=== PATIENT | male | born 1995 | race American Indian/Alaskan Native ===

== ENCOUNTER 2019-08-10 16:56 | Emergency (ER) | payer SELFPAY ==
--- NOTE | 2019-08-10 17:47 | Emergency Department Report ---
Blank Doc - Documentation Documentation: 23-year-old male that presents with abdominal pain with n/v. This initial assessment/diagnostic orders/clinical plan/treatment(s) is/are subject to change based on patient's health status, clinical progression and re- assessment by fellow clinical providers in the ED. Further treatment and workup at subsequent clinical providers discretion. Patient/guardians urged not to elope from the ED as their condition may be serious if not clinically assessed and managed. Initial orders include: 1- Patient sent to [facility] for further evaluation and treatment 2- labs 3- UA
[2019-08-10 17:54] LABS: Basophils % (Auto) 0.1 % (0.0-1.8); Eosinophils # (Auto) 0.1 K/mm3 (0.0-0.4); Eosinophils % (Auto) 0.5 % (0.0-4.3); Hematocrit 43.9 % (35.5-45.6); Lymphocytes # (Auto) 1.2 K/mm3 (1.2-5.4); Lymphocytes % (Auto) 9.8 % (13.4-35.0); Mean Corpuscular HGB Conc 32 % (32-34); Mean Corpuscular Volume 83 fl (84-94); Monocytes % (Auto) 8.1 % (0.0-7.3); Platelet Count 190 K/mm3 (140-440); Red Blood Count 5.31 M/mm3 (3.65-5.03); Red Cell Distribution Width 14.5 % (13.2-15.2)
[2019-08-10 18:15] LABS: Alanine Aminotransferase 5 units/L (7-56); Albumin 4.8 g/dL (3.9-5); BUN/Creatinine Ratio 9; Blood Urea Nitrogen 9 mg/dL (9-20); Calcium 9.4 mg/dL (8.4-10.2); Hemolysis Index 7
[2019-08-10 18:26] LABS: Bilirubin,Urine NEG (Negative); Blood,Urine NEG (Negative); Color,Urine Yellow (Yellow); Mucus,Urine 2+ /HPF; Protein,Urine <15 mg/dL mg/dL (Negative); Urobilinogen,Urine < 2.0 mg/dL (<2.0); WBC,Urine < 1.0 /HPF (0.0-6.0)
--- NOTE | 2019-08-10 19:48 | Emergency Department Report ---
ED Abdominal Pain HPI - General Chief Complaint: Abdominal Pain Stated Complaint: ABD PAIN Time Seen by Provider: 08/10/19 17:46 Source: patient Mode of arrival: Ambulatory Limitations: No Limitations - History of Present Illness MD Complaint: abdominal pain -: days(s) Radiation: none Migration to: no migration Quality: aching, dull Consistency: constant Improves With: nothing Worsens With: movement Associated Symptoms: denies: vomiting, diarrhea, constipation, dysuria, melena, hematuria, anorexia - Related Data Previous Rx's Medication Instructions Recorded Last Taken Type Hydrocortisone [Anusol-Hc 2.5% TOP 1 gm RC BID #30 cream..g. 08/10/19 Unknown Rx CREAM] Lactulose [Cephulac] 20 gm PO Q6HR PRN #540 ml 08/10/19 Unknown Rx bisacodyL [Dulcolax suppos] 10 mg [place] ONCE #7 supp.rect 08/10/19 Unknown Rx Allergies Allergy/AdvReac Type Severity Reaction Status Date / Time No Known Allergies Allergy Verified 08/10/19 22:08 ED Review of Systems ROS: Stated complaint: ABD PAIN Other details as noted in HPI Comment: All other systems reviewed and negative ED Past Medical Hx - Past Medical History Previous Medical History?: No - Surgical History Past Surgical History?: No - Social History Smoking Status: Never Smoker Substance Use Type: Marijuana - Medications Home Medications: Home Medications Medication Instructions Recorded Confirmed Last Taken Type Hydrocortisone [Anusol-Hc 2.5% TOP 1 gm RC BID #30 cream..g. 08/10/19 Unknown Rx CREAM] Lactulose [Cephulac] 20 gm PO Q6HR PRN #540 ml 08/10/19 Unknown Rx bisacodyL [Dulcolax suppos] 10 mg [place] ONCE #7 supp.rect 08/10/19 Unknown Rx ED Physical Exam - General Limitations: No Limitations General appearance: alert, in no apparent distress - Head Head exam: Present: atraumatic, normocephalic - Eye Eye exam: Present: normal appearance, PERRL, EOMI Pupils: Present: normal accommodation - ENT ENT exam: Present: normal exam, mucous membranes moist - Neck Neck exam: Present: normal inspection - Respiratory Respiratory exam: Present: normal lung sounds bilaterally. Absent: respiratory distress, wheezes, rales, chest wall tenderness, accessory muscle use, decreased breath sounds - Cardiovascular Cardiovascular Exam: Present: regular rate, normal rhythm. Absent: systolic murmur, diastolic murmur, rubs, gallop - GI/Abdominal GI/Abdominal exam: Present: soft, normal bowel sounds - Rectal Rectal exam: Present: deferred, hemorrhoids. Absent: fecal impaction, tende rness - exam: Present: normal inspection - Extremities Exam Extremities exam: Present: normal inspection - Back Exam Back exam: Present: normal inspection, full ROM. Absent: CVA tenderness (R), CVA tenderness (L), muscle spasm - Neurological Exam Neurological exam: Present: alert, oriented X3, CN II-XII intact, normal gait - Psychiatric Psychiatric exam: Present: normal affect, normal mood. Absent: anxious - Skin Skin exam: Present: warm, dry, intact, normal color. Absent: rash ED Course Vital Signs 08/10/19 08/10/19 17:06 23:00 Temperature 97.6 F 98.1 F Pulse Rate 52 L 48 L Respiratory 20 18 Rate Blood Pressure 148/75 Blood Pressure 147/70 [Left] O2 Sat by Pulse 100 99 Oximetry ED Medical Decision Making - Lab Data Result diagrams: 08/10/19 17:21 08/10/19 17:21 - Medical Decision Making This patient presents with abdominal pain of unclear etiology. Their evaluation has not identified a emergent etiology for the abdominal pain. Specifically, given the very benign exam, normal laboratory studies, and lack of significant risk factors, I have a very low suspicion for appendicitis, ischemic bowel, bowel perforation, or any other life threatening disease. I have discussed with the patient the level of uncertainty with undifferentiated abdominal pain and clearly explained the need to follow-up as noted on the discharge instructions, or return to the Emergency Department immediately if the pain worsens, develops fever, persistent and uncontrollable vomiting, or for any new symptoms or concerns. I discussed with the patient that this presentation today for abdominal pain could represent a significant risk for an acute abdominal process. Although the tests in the ED were essentially normal, there is still a possibility of a process such as appendicitis, diverticulitis, cholecystitis, ulcer, early bowel obstruction, mesenteric ischemia, kidney stone, or even kidn ey infection which could subsequently cause disability or . The patient understands that they must return within 24 hours for a recheck or see their physician within 24 hours for re-exam due to the possibility of significant surgical or medical process. Critical care attestation.: If time is entered above; I have spent that time in minutes in the direct care of this critically ill patient, excluding procedure time. ED Disposition Clinical Impression: Constipation, Abdominal pain, Hemorrhoids Disposition: TO HOME OR SELFCARE Is pt being admited?: No Does the pt Need Aspirin: No Condition: Stable Instructions: Constipation (ED), Hemorrhoids (ED), Rectal Bleeding (ED), High Fiber Diet (ED), Acute Abdominal Pain (ED) Prescriptions: Hydrocortisone [Anusol-Hc 2.5% TOP CREAM] 1 gm RC BID #30 cream..g. Lactulose [Cephulac] 20 gm PO Q6HR PRN #540 ml PRN Reason: constipation bisacodyL [Dulcolax suppos] 10 mg MI ONCE #7 supp.rect Referrals: [facility] [Provider Group] - 3-5 Days
--- NOTE | 2019-08-10 20:26 | XRay Report ---
ABDOMEN 3 VIEW(S) INDICATION / CLINICAL INFORMATION: abd pain and constipation. COMPARISON: None available. FINDINGS: TUBES / LINES: None. BOWEL GAS PATTERN: No significant abnormality. FREE AIR / EXTRALUMINAL GAS: None seen. ADDITIONAL FINDINGS: No acute findings on the included chest radiograph. IMPRESSION: 1. No significant abnormality. Signer Name: Cale Harmon MD Signed: 08/10/2019 8:21 PM Workstation Name: [id number]
[2019-08-10] MEDS ORDERED: HYOSCYAMINE SUBL 0.125 MG TAB ONE (22:03)
[2019-08-10] MEDS ORDERED: HYOSCYAMINE SUBL 0.125 MG TAB SL ONE (22:15)
[2019-08-10 23:02] VITALS: BP 147/70
== END 2019-08-10 23:02 | disposition home or self-care (01) ==
LOC: ED 16:56
DX: K59.00 Constipation, unspecified (principal); K64.8 Other hemorrhoids; F12.10 Cannabis abuse, uncomplicated
CPT/HCPCS: 36415; 74022; 80053; 81001; 83690; 85025

== ENCOUNTER 2019-08-11 06:56 | Emergency (ER) | payer SELFPAY ==
[2019-08-11 07:29] VITALS: BP 128/63
[2019-08-11] MEDS ORDERED: LACTATED RINGERS 1,000 ML IV ONE (07:55)
[2019-08-11] MEDS ORDERED: HYOSCYAMINE SUBL 0.125 MG TAB SL ONE (07:55)
[2019-08-11] MEDS ORDERED: ONDANSETRON 4 MG/2 ML INJ IV ONE (07:55)
--- NOTE | 2019-08-11 08:02 | Emergency Department Report ---
ED Abdominal Pain HPI - General Chief Complaint: Nausea/Vomiting/Diarrhea Stated Complaint: ABD PAIN NAUSEA VOMITING DIZZY Time Seen by Provider: 08/11/19 07:54 Source: patient Mode of arrival: Ambulatory Limitations: No Limitations - History of Present Illness Initial Comments: 23-year-old healthy male presenting with abdominal pain. He states it began 2- 1/2 days ago and has gradually worsened. He was seen last night and had labs as well as an x-ray did not reveal any significant findings. He states the pain is worsened. Pain is located primarily in the left lower quadrant but also a bit in the right lower quadrant. MD Complaint: abdominal pain -: Gradual, days(s) (2) Location: LLQ, RLQ Radiation: none Migration to: no migration Severity: moderate Severity scale (0 -10): 5 Quality: cramping Consistency: constant Improves With: nothing Worsens With: nothing Associated Symptoms: nausea, vomiting. denies: diarrhea, fever, chills - Related Data Previous Rx's Medication Instructions Recorded Last Taken Type Hydrocortisone [Anusol-Hc 2.5% TOP 1 gm RC BID #30 cream..g. 08/10/19 Unknown Rx CREAM] Lactulose [Cephulac] 20 gm PO Q6HR PRN #540 ml 08/10/19 Unknown Rx bisacodyL [Dulcolax suppos] 10 mg [place] ONCE #7 supp.rect 08/10/19 Unknown Rx Ciprofloxacin HCl [Ciprofloxacin 500 mg PO Q12HR #20 tab 08/11/19 Unknown Rx TAB] Hyoscyamine Subl [Levsin Sl 0.125 0.125 mg SL Q6HR PRN #12 tab 08/11/19 Unknown Rx TAB] Promethazine [Phenergan] 25 mg PO Q6HR PRN #12 tab 08/11/19 Unknown Rx metroNIDAZOLE [Flagyl] 500 mg PO Q8HR #30 tablet 08/11/19 Unknown Rx Allergies Allergy/AdvReac Type Severity Reaction Status Date / Time No Known Allergies Allergy Verified 08/10/19 22:08 ED Review of Systems ROS: Stated complaint: ABD PAIN NAUSEA VOMITING DIZZY Other details as noted in HPI Comment: All other systems reviewed and negative Gastrointestinal: as per HPI ED Past Medical Hx - Past Medical History Previous Medical History?: No - Surgical History Past Surgical History?: No - Social History Smoking Status: Never Smoker Substance Use Type: None - Medications Home Medications: Home Medications Medication Instructions Recorded Confirmed Last Taken Type Hydrocortisone [Anusol-Hc 2.5% TOP 1 gm RC BID #30 cream..g. 08/10/19 Unknown Rx CREAM] Lactulose [Cephulac] 20 gm PO Q6HR PRN #540 ml 08/10/19 Unknown Rx bisacodyL [Dulcolax suppos] 10 mg [place] ONCE #7 supp.rect 08/10/19 Unknown Rx Ciprofloxacin HCl [Ciprofloxacin 500 mg PO Q12HR #20 tab 08/11/19 Unknown Rx TAB] Hyoscyamine Subl [Levsin Sl 0.125 0.125 mg SL Q6HR PRN #12 tab 08/11/19 Unknown Rx TAB] Promethazine [Phenergan] 25 mg PO Q6HR PRN #12 tab 08/11/19 Unknown Rx metroNIDAZOLE [Flagyl] 500 mg PO Q8HR #30 tablet 08/11/19 Unknown Rx ED Physical Exam - General Limitations: No Limitations General appearance: alert, in no apparent distress - Head Head exam: Present: atraumatic, normocephalic - Eye Eye exam: Present: normal appearance - ENT ENT exam: Present: mucous membranes moist - Neck Neck exam: Present: normal inspection - Respiratory Respiratory exam: Present: normal lung sounds bilaterally. Absent: respiratory distress - Cardiovascular Cardiovascular Exam: Present: regular rate, normal rhythm. Absent: systolic murmur, diastolic murmur, rubs, gallop - GI/Abdominal GI/Abdominal exam: Present: soft, tenderness (Mild left lower quadrant and minimal right lower quadrant tenderness), normal bowel sounds - Rectal Rectal exam: Present: deferred - Extremities Exam Extremities exam: Present: normal inspection - Back Exam Back exam: Present: normal inspection - Neurological Exam Neurological exam: Present: alert, oriented X3 - Psychiatric Psychiatric exam: Present: normal affect, normal mood - Skin Skin exam: Present: warm, dry, intact, normal color. Absent: rash ED Course Vital Signs 08/11/19 08/11/19 07:25 08:01 Temperature 98.9 F Pulse Rate 50 L Respiratory 18 18 Rate Blood Pressure 128/63 O2 Sat by Pulse 100 Oximetry ED Medical Decision Making - Lab Data Result diagrams: 08/11/19 08:07 08/11/19 08:07 - Radiology Data CT abdomen pelvis with IV contrast shows ascending colon colitis, normal appendix - Medical Decision Making Patient presenting for abdominal pain, seen here last night for the same. Had a plain film that did not show any acute process. On exam he has some mild left lower quadrant and minimal right lower quadrant tenderness. Since he is returned less than 24 hours after last visit, a CT will be obtained to rule out appendicitis or other acute pathology. Patient given IV fluids, Levsin, Zofran. Labs show an elevated white blood cell count of 14,000, CT shows colitis of the ascending colon. Patient will be placed on empiric antibiotic coverage and refer to GI for follow-up. Return precautions given. - Differential Diagnosis Colitis, appendicitis, diverticulitis Critical care attestation.: If time is entered above; I have spent that time in minutes in the direct care of this critically ill patient, excluding procedure time. ED Disposition Clinical Impression: Colitis Disposition: TO HOME OR SELFCARE Is pt being admited?: No Condition: Good Instructions: Infectious Colitis (ED) Prescriptions: Ciprofloxacin HCl [Ciprofloxacin TAB] 500 mg PO Q12HR #20 tab metroNIDAZOLE [Flagyl] 500 mg PO Q8HR #30 tablet Hyoscyamine Subl [Levsin Sl 0.125 TAB] 0.125 mg SL Q6HR PRN #12 tab PRN Reason: Pain, Mild (1-3) Promethazine [Phenergan] 25 mg PO Q6HR PRN #12 tab PRN Reason: Nausea Referrals: MACEY RAHMANGRESHAM MD MYKE [Primary Care Provider] - 3-5 Days ELMER ALEX MD [Staff Physician] - 3-5 Days Time of Disposition: 11:00
[2019-08-11 08:44] LABS: Basophils % (Auto) 0.1 % (0.0-1.8); Eosinophils % (Auto) 0.1 % (0.0-4.3); Hematocrit 42.8 % (35.5-45.6); Hemoglobin 13.8 gm/dl (11.8-15.2); Lymphocytes # (Auto) 1.2 K/mm3 (1.2-5.4); Lymphocytes % (Auto) 8.4 % (13.4-35.0); Mean Corpuscular HGB Conc 32 % (32-34); Mean Corpuscular Volume 81 fl (84-94); Monocytes # (Auto) 1.1 K/mm3 (0.0-0.8); Monocytes % (Auto) 7.9 % (0.0-7.3); Platelet Count 179 K/mm3 (140-440); Red Blood Count 5.28 M/mm3 (3.65-5.03); Red Cell Distribution Width 14.2 % (13.2-15.2)
[2019-08-11 09:06] LABS: Alanine Aminotransferase 6 units/L (7-56); Albumin 4.5 g/dL (3.9-5); BUN/Creatinine Ratio 7; Blood Urea Nitrogen 8 mg/dL (9-20); Calcium 9.5 mg/dL (8.4-10.2); Hemolysis Index 5
--- NOTE | 2019-08-11 10:54 | Cat Scan Report ---
CT ABDOMEN AND PELVIS WITH CONTRAST HISTORY: Bilateral lower quadrant abdominal pain. COMPARISON: None TECHNIQUE: Routine abdominal and pelvic CT exam performed following intravenous contrast administrat ion. 100 cc of Omnipaque 300 was injected intravenously without incident. Consent was obtained prior to the administration of the contrast.. All CT scans at this location are performed using CT dose red uction for ALARA by means of automated exposure control. FINDINGS: CT ABDOMEN: Lung Bases: No significant abnormality. Liver: No significant abnormality. Biliary: Normal gallbladder and bile ducts. Spleen: No significant abnormality. Unenlarged. Pancreas: No significant abnormality. Adrenals: No significant abnormality. Kidneys: No significant abnormality. Lymphatics: No lymphadenopathy. Vasculature: No significant abnormality. Bowel/Peritoneum: Normal stomach and small bowel. Circumferential wall thickening of the ascending co kayla which extends at least 13 cm in length. The wall measures 2 cm maximum thickness. The rest of the colon is normal. The appendix is normal. No free air or ascites. CT PELVIC: : No significant abnormality. Lymphatics: No lymphadenopathy. Osseous Structures: No aggressive appearing osseous lesions. Additional Findings: Normal rectum. IMPRESSION: 1. Acute colitis involving the ascending colon. 2. Normal terminal ileum and appendix. 3. No but signs of obstruction or perforation. Signer Name: Kenyon Mckeon MD Signed: 08/11/2019 10:49 AM Workstation Name: [id number]
== END 2019-08-11 11:12 | disposition home or self-care (01) ==
LOC: ED 06:56
DX: K52.9 Noninfective gastroenteritis and colitis, unspecified (principal); Z79.899 Other long term (current) drug therapy
CPT/HCPCS: 36415; 74177; 80053; 83690; 85025; 96361; 96374; 99284; J2405; J7120; Q9967